=== PATIENT | female | born 1970 | race Caucasian/White ===

== ENCOUNTER 2016-11-20 18:38 | Inpatient (IN) | payer MEDICAID ==
[~2016-11-20] VITALS: Ht 162.6 cm; Wt 69.0 kg
--- NOTE | 2016-11-20 21:00 | ERD ---
ER Documentation Chief Complaint Date/Time DATE: 11/20/16 TIME: 20:58 Chief Complaint VAG BLEED FOR THE PAST MONTH. WITH MILD DYSURIA MILD DIZZINESS HPI This a 46-year-old female who presents the emergency department today complaining of vaginal bleeding for the past month. Patient states she also has some lower abdominal pain. Patient states that she saw her doctor 3 weeks ago was given oral contraceptive pills with no improvement. Patient states that she has been getting her period approximately 2 times a month however this past time it has continued bleeding. States she has a Nexplanon implant. Denies any nausea vomiting, dysuria. ROS All systems reviewed and are negative except as per history of present illness. Physical Exam Vitals Vital Signs Date Time Temp Pulse Resp B/P Pulse Ox O2 Delivery O2 Flow Rate FiO2 11/20/16 19:00 98.8 86 20 161/88 100 Physical Exam Const: No acute distress Head: Atraumatic Eyes: Normal Conjunctiva ENT: Normal External Ears, Nose and Mouth. Neck: Full range of motion..~ No meningismus. Resp: Clear to auscultation bilaterally Cardio: Regular rate and rhythm, no murmurs Abd: Soft, lower pelvic pain, non distended. Normal bowel sounds. No right lower quadrant pain. No tenderness to McBurney's. No left lower quadrant pain. Skin: No petechiae or rashes Back: No midline or flank tenderness Ext: No cyanosis, or edema Neur: Awake and alert Psych: Normal Mood and Affect Result Diagram: 11/20/16 2100 11/20/16 2100 Results 24 hrs Laboratory Tests Test 11/20/16 21:00 11/20/16 21:26 Alanine Aminotransferase (ALT/SGPT) 19IU/L Albumin 4.1g/dl Albumin/Globulin Ratio 1.10 Alkaline Phosphatase 53IU/L Anion Gap 19 Aspartate Amino Transf (AST/SGOT) 19IU/L Basophils # 0.010^3/ul Basophils % 0.5% Blood Urea Nitrogen 7mg/dl Calcium Level 8.9mg/dl Carbon Dioxide Level 25mmol/L Chloride Level 104mmol/L Creatinine 0.57mg/dl Direct Bilirubin 0.00mg/dl Eosinophils # 0.110^3/ul Eosinophils % 2.1% Globulin 3.70g/dl Glucose Level 101mg/dl Hematocrit 25.8% Hemoglobin 7.8g/dl Indirect Bilirubin 0.1mg/dl Lymphocytes # 2.810^3/ul Lymphocytes % 45.7% Mean Corpuscular Hemoglobin 24.9pg Mean Corpuscular Hemoglobin Concent 30.2g/dl Mean Corpuscular Volume 82.4fl Mean Platelet Volume 8.5fl Monocytes # 0.410^3/ul Monocytes % 7.2% Neutrophils # 2.710^3/ul Neutrophils % 44.2% Nucleated Red Blood Cells # 0.010^3/ul Nucleated Red Blood Cells % 0.0/100WBC Platelet Count 62838^3/UL Potassium Level 3.5mmol/L Red Blood Count 3.1310^6/ul Red Cell Distribution Width 15.1% Sodium Level 144mmol/L Total Bilirubin 0.1mg/dl Total Protein 7.8g/dl White Blood Count 6.210^3/ul Bedside Urine Blood 3+ Bedside Urine Glucose (UA) Negative Bedside Urine Ketones (LAB) Negative Bedside Urine Leukocyte Esterase (L Trace Bedside Urine Nitrite (LAB) Negative Bedside Urine Protein (LAB) 1+ Bedside Urine pH (LAB) 6.0 Current Medications Medications (Trade) Dose Ordered Sig/José Route PRN Reason Start Time Stop Time Status Last Admin Dose Admin Sodium Chloride (NS) 250 ml @ 0 mls/hr Q0M ONCE IV 11/20/16 21:49 11/20/16 21:50 DC Procedures/MDM This 46-year-old female who presents to the emergency department today complaining of vaginal bleeding for the past month. Patient is already on the Nexplanon and has tried pohm-jin-sfrbyad medications and still continue to bleed. I did obtain laboratory work as well as an ultrasound Laboratory work shows no elevated white blood cell count. Her hemoglobin is 7.8 hematocrit is 25%. Her platelets are elevated. Electrolytes are within normal limits. Glucose is within normal limits. Liver function is within normal limits. UA shows trace leukocyte esterase and negative nitrites. Urine test is negative Non-OB ultrasound is pending at time of signout to Dr. Scott. Patient symptoms at this time is consistent with excessive vaginal bleeding versus dysfunctional uterine bleeding. I discussed the patient's hemoglobin levels with Dr. Scott he feels that the patient would require a transfusion at this time given that her hemoglobin is less than 8. She will require admission for further evaluation and workup. I have explained to this to the patient. Patient understands. Patient declined pain medication here in the emergency department. Any further documentation orders placed will be placed by Dr. Scott or the admitting physician Departure Diagnosis: Primary Impression: Excessive vaginal bleeding Condition: REBECCA Chacko PA-C Nov 20, 2016 21:00
[2016-11-20 21:14] LABS: ADD SCAN DIFF NO
[2016-11-20 21:19] LABS: BASOPHILS % 0.5 % (0.0-2.0); EOSINOPHILS # 0.1 10^3/ul (0.0-0.5); EOSINOPHILS % 2.1 % (0.0-7.0); HEMATOCRIT 25.8 % (37.0-47.0); HEMOGLOBIN 7.8 g/dl (12.0-16.0); LYMPHOCYTES # 2.8 10^3/ul (0.8-2.9); LYMPHOCYTES % 45.7 % (15.0-51.0); MEAN CORPUSCULAR HEMOGLOBIN 24.9 pg (29.0-33.0); MEAN CORPUSCULAR HGB CONC 30.2 g/dl (32.0-37.0); MEAN CORPUSCULAR VOLUME 82.4 fl (82.0-101.0); MEAN PLATELET VOLUME 8.5 fl (7.4-10.4); MONOCYTE # 0.4 10^3/ul (0.3-0.9); MONOCYTES % 7.2 % (0.0-11.0); NEUTROPHIL # 2.7 10^3/ul (1.6-7.5); NEUTROPHILS % 44.2 % (39.0-77.0); PLATELET COUNT 513 10^3/UL (140-415); RED BLOOD COUNT 3.13 10^6/ul (4.20-5.40); RED CELL DISTRIBUTION WIDTH 15.1 % (11.5-14.5); WHITE BLOOD COUNT 6.2 10^3/ul (4.8-10.8)
[2016-11-20 21:23] LABS: URINE BLOOD (Dip) POC 3+ (NEGATIVE)
[2016-11-20 21:28] LABS: ALBUMIN 4.1 g/dl (3.3-4.9); POTASSIUM 3.5 mmol/L (3.5-5.1)
[2016-11-20 21:30] LABS: CREATININE 0.57 mg/dl (0.44-1.00)
[2016-11-20 21:31] LABS: ALBUMIN/GLOBULIN RATIO 1.1; BILIRUBIN,INDIRECT 0.1 mg/dl (0-1.1); BILIRUBIN,TOTAL 0.1 mg/dl (0.2-1.3); TOTAL PROTEIN 7.8 g/dl (6.1-8.1)
[2016-11-20 21:32] LABS: CALCIUM 8.9 mg/dl (8.4-10.2)
[2016-11-20] MEDS ORDERED: SOD CHLORIDE 0.9% 250 ML IV ONE (21:49)
--- NOTE | 2016-11-20 22:00 | RADRPT ---
PROCEDURE: US Pelvis. CLINICAL INDICATION: Vaginal bleeding TECHNIQUE: Multiple sonographic images of the pelvis were obtained utilizing a transabdominal and endovaginal technique. The images were reviewed on a PACS workstation. COMPARISON: None. FINDINGS: The uterus is visualized and measures 9.1 x 5.4 x 6.5 cm in size. The endometrial echo complex is h eterogeneous and measures 10.9 mm. There is no evidence for free fluid. A right ovarian cystic struc ture is seen measuring 1.4 cm in maximal diameter and may represent a dominant follicle. The remain isamar of the right ovary has a normal echotexture and measures 2.6 x 1.6 x 2.1 cm. The left ovary is not well visualized. No adnexal masses are noted. IMPRESSION: 1. Thickened and heterogeneous endometrium. 2. Small right ovarian cystic structure which may represent a dominant follicle. RPTAT: HPNM Physician Oscar Date Time Electronically viewed and signed by Physician Oscar on 11/20/2016 22:00 /
[2016-11-20] MEDS ORDERED: ACETAMINOPHEN 325 MG TAB PO PRN (22:30)
[2016-11-20] MEDS ORDERED: ONDANSETRON 4 MG INJ IV PRN (22:30)
[2016-11-21] VITALS (9 sets, daily range): BP systolic 120–149; BP diastolic 60–82; PULSE 71–83; RESP 14–18; TEMP 98.3; Ht 162.6 cm; Wt 69.0 kg
[2016-11-21] MEDS ORDERED: ONDANSETRON 4 MG INJ IV PRN (03:30)
[2016-11-21] MEDS ORDERED: ACETAMINOPHEN 325 MG TAB PO PRN (03:30)
[2016-11-21 07:33] LABS: ADD SCAN DIFF NO
[2016-11-21 07:38] LABS: BASOPHILS % 0.6 % (0.0-2.0); EOSINOPHILS # 0.1 10^3/ul (0.0-0.5); EOSINOPHILS % 2.1 % (0.0-7.0); HEMATOCRIT 31.7 % (37.0-47.0); HEMOGLOBIN 9.9 g/dl (12.0-16.0); LYMPHOCYTES # 1.7 10^3/ul (0.8-2.9); LYMPHOCYTES % 34.3 % (15.0-51.0); MEAN CORPUSCULAR HEMOGLOBIN 25.8 pg (29.0-33.0); MEAN CORPUSCULAR HGB CONC 31.2 g/dl (32.0-37.0); MEAN CORPUSCULAR VOLUME 82.8 fl (82.0-101.0); MEAN PLATELET VOLUME 8.8 fl (7.4-10.4); MONOCYTE # 0.4 10^3/ul (0.3-0.9); NEUTROPHIL # 2.7 10^3/ul (1.6-7.5); NEUTROPHILS % 54.8 % (39.0-77.0); PLATELET COUNT 444 10^3/UL (140-415); RED BLOOD COUNT 3.83 10^6/ul (4.20-5.40); RED CELL DISTRIBUTION WIDTH 14.9 % (11.5-14.5); WHITE BLOOD COUNT 4.9 10^3/ul (4.8-10.8)
[2016-11-21 07:49] LABS: ALBUMIN 3.7 g/dl (3.3-4.9)
[2016-11-21 07:50] LABS: POTASSIUM 3.6 mmol/L (3.5-5.1)
[2016-11-21 07:52] LABS: ALBUMIN/GLOBULIN RATIO 1.08; BILIRUBIN,INDIRECT 0.6 mg/dl (0-1.1); BILIRUBIN,TOTAL 0.6 mg/dl (0.2-1.3); CREATININE 0.55 mg/dl (0.44-1.00); TOTAL PROTEIN 7.1 g/dl (6.1-8.1)
[2016-11-21 07:53] LABS: CALCIUM 8.4 mg/dl (8.4-10.2); MAGNESIUM 2.1 mg/dl (1.7-2.5)
--- NOTE | 2016-11-21 10:59 | HP ---
Date/Time of Note Date/Time of Note DATE: 11/21/16 TIME: 10:51 Assessment/Plan Lines/Catheters IV Catheter Type (from Nrsg): Peripheral IV Assessment/Plan Assessment/Plan 1. Menorrhagia - Pelvic u/s showed thickened and heterogeneous endometrium and small right ovarian cystic structure which may represent a dominant follicle. - She is s/p 2 units of PRBCs for anemia - Need LANDING SIGNAL OFFICER consult 2. Symptomatic Anemia - see above HPI/ROS Admit Date/Time Admit Date/Time Nov 20, 2016 at 22:30 Hx of Present Illness This is a 46 yo female who presented to [facility] complaining of heavy menses of over 2 months duration. She was given oral contreceptive by PCP with no improvement. Denied vaginal bleeding in between her periods. She also complained of lower abd pain. denied fever, chills, nausea, vomiting, chest pain , SOB or urinary symptoms. In ER, she was found to be anemic with hgb of 7.8. Pelvic u/s showed thickened and heterogeneous endometrium and small right ovarian cystic structure which may represent a dominant follicle. she has reived 2 units of PRBCs. . PMH/Family/Social Social History Smoking Status: Never smoker Exam/Review of Systems Vital Signs Vitals Vital Signs Date Time Temp Pulse Resp B/P Pulse Ox O2 Delivery O2 Flow Rate FiO2 11/21/16 08:22 98.0 72 18 131/64 96 11/21/16 06:40 Room Air Intake and Output 11/20/16 11/20/16 11/21/16 15:00 23:00 07:00 Intake Total 1150 ml Output Total 500 ml Balance 650 ml Labs Result Diagram: 11/21/16 0638 11/21/16 0638 Medications Medications Current Medications Acetaminophen (Tylenol Tab) 650 mg Q4H PRN PO PAIN AND OR ELEVATED TEMP; Start 11/21/16 at 03:30 Ondansetron HCl (Zofran Inj) 4 mg Q6H PRN IV NAUSEA AND/OR VOMITING; Start 11/21 at 03:30 HILARIA GARIBAY MD Nov 21, 2016 10:59
--- NOTE | 2016-11-21 16:26 | PDOCDIS ---
Discharge Instructions CONDITION Patient Condition: Good HOME CARE INSTRUCTIONS: Diet Instructions: Regular ACTIVITY: Activity Restrictions: No Restrictions FOLLOW UP/APPOINTMENTS Appointments F/U WITH A PCP AND A COMPLIANCE INVESTIGATOR IN 1-2 WEEKS XIMENA ROBLES Nov 21, 2016 16:26
--- NOTE | 2016-11-21 17:31 | CONS ---
Date/Time of Note Date/Time of Note DATE: 11/21/16 TIME: 17:21 Consultation Date/Type/Reason Admit Date/Time Nov 21, 2016 Hospital consult Final diagnosis; menometrorrhagia, secondary anemia Initial Consult Date This patient is a 47 years old 3 para 3 who came to emergency room due to menorrhagia and metrorrhagia and secondary anemia . Her hemoglobin and hematocrit in the emergency room were 7.8 and 25.6 respectively. She was given 2 units of blood. In reviewing her past medical history ; she was having this heavy for few months. Her 3 deliveries were all normal. No history of allergy to any medication. She has a hormone (etonogestrel 68mg) containing contraceptive implant mg for 3 year which is scheduled to be removed on April 16 of this year. On examination she is a slightly anemic with pale mucosa. Ear nose throat otherwise normal Neck is normal, no neck vein distention ,no thyromegaly, no lymph node enlargement anywhere in the body Chest is clear to auscultation her precaution no rales. Heart normal sinus rhythm no murmur heart rate is around 88/min Breasts are free of masses Abdomen is soft no organomegaly no real tenderness No CVA tenderness Extremities are normal no varicosities On pelvic examination she does have some bleeding , vagina and cervix are otherwise normal . The uterus is top normal size ,no adnexal mass could be appreciated . Impression : anemia due to menometrorrhagia Patient was advised to see her technical lead for possible D&C and hormone therapy if no effect fact she might need a hysterectomy Reason for Consultation Before discharge a prescription was given for medroxyprogesterone acetate 10 mg tablets to be taken once a day as well as ibuprofen 600 mg tablet every 6 hours if needed . Before discharge her hemoglobin was 9.9 hematocrit 31.7 Detailed Summary Eyes: no complaints (Conjunctiva is somewhat pale), No discharge, No other, No pain, No redness, No visual change ENT: No bleeding, No congestion, No discharge, No dysphagia, No no complaints, No other, No pain, No sore throat Respiratory: No cough, No no complaints, No other, No pain, No pleuritic pain, No shortness of breath, No sputum, No wheezing Cardiovascular: No chest pain, No edema, No lightheadedness, No no complaints, No orthopenea, No other, No palpitations, No paroxysmal nocturnal dyspnea Gastrointestinal: No blood, No constipation, No decreased appetite, No diarrhea , No flatus, No nausea, No no complaints, No other, No pain, No passing stool, No vomiting Genitourinary: bleeding (Slight vaginal bleeding at this time), No discharge, No dysuria, No flank pain, No hematuria, No no complaints, No other Musculoskeletal: No back pain, No bone/joint pain, No neck pain, No no complaints, No other, No restricted range of motion, No swelling Skin: No bruising, No erythema, No laceration, No no complaints, No other, No pruritis, No rash, No skin lesions Neurologic: other (Normal deep tendon reflex), No confusion, No dizziness, No focal-weakness, No headache, No no complaints , No seizure, No syncope Exam/Review of Systems Vital Signs Vitals Vital Signs Date Time Temp Pulse Resp B/P Pulse Ox O2 Delivery O2 Flow Rate FiO2 11/21/16 08:22 98.0 72 18 131/64 96 11/21/16 06:40 Room Air Intake and Output 11/20/16 11/20/16 11/21/16 15:00 23:00 07:00 Intake Total 1150 ml Output Total 500 ml Balance 650 ml Results Result Diagram: 11/21/1638 11/21/16 0638 Results 24 hrs Laboratory Tests Test 11/20/16 21:00 11/20/16 21:26 11/21/16 06:38 Alanine Aminotransferase (ALT/SGPT) 19 16 Albumin 4.1 3.7 Albumin/Globulin Ratio 1.10 1.08 Alkaline Phosphatase 53 51 Anion Gap 19 H 16 Aspartate Amino Transf (AST/SGOT) 19 19 Basophils # 0.0 0.0 Basophils % 0.5 0.6 Blood Urea Nitrogen 7 5 L Calcium Level 8.9 8.4 Carbon Dioxide Level 25 25 Chloride Level 104 108 Creatinine 0.57 0.55 Direct Bilirubin 0.00 0.00 Eosinophils # 0.1 0.1 Eosinophils % 2.1 2.1 Globulin 3.70 H 3.40 H Glucose Level 101 86 Hematocrit 25.8 L 31.7 #L Hemoglobin 7.8 L 9.9 #L Indirect Bilirubin 0.1 0.6 Lymphocytes # 2.8 1.7 Lymphocytes % 45.7 34.3 Mean Corpuscular Hemoglobin 24.9 L 25.8 L Mean Corpuscular Hemoglobin Concent 30.2 L 31.2 L Mean Corpuscular Volume 82.4 82.8 Mean Platelet Volume 8.5 8.8 Monocytes # 0.4 0.4 Monocytes % 7.2 8.0 Neutrophils # 2.7 2.7 Neutrophils % 44.2 54.8 Nucleated Red Blood Cells # 0.0 0.0 Nucleated Red Blood Cells % 0.0 0.0 Platelet Count 513 H 444 H Potassium Level 3.5 3.6 Red Blood Count 3.13 L 3.83 #L Red Cell Distribution Width 15.1 H 14.9 H Sodium Level 144 145 H Total Bilirubin 0.1 L 0.6 Total Protein 7.8 7.1 White Blood Count 6.2 4.9 # Bedside Urine Blood 3+ H Bedside Urine Glucose (UA) Negative Bedside Urine Ketones (LAB) Negative Bedside Urine Leukocyte Esterase (L Trace H Bedside Urine Nitrite (LAB) Negative Bedside Urine Protein (LAB) 1+ H Bedside Urine pH (LAB) 6.0 Magnesium Level 2.1 Phosphorus Level 3.0 Medications Medications Current Medications Acetaminophen (Tylenol Tab) 650 mg Q4H PRN PO PAIN AND OR ELEVATED TEMP Last administered on 11/21/16 12:41; Admin Dose 650 MG; Start 11/21/16 at 03:30 Ondansetron HCl (Zofran Inj) 4 mg Q6H PRN IV NAUSEA AND/OR VOMITING; Start 11/21 at 03:30 BETH SANON MD Nov 21, 2016 17:31
--- NOTE | 2016-11-21 18:34 | DS ---
DATE OF ADMISSION: 11/20/2016 DATE OF DISCHARGE: 11/21/2016 DISCHARGE DIAGNOSES 1. Severe anemia, status post blood transfusion as well as OB consult. The patient discharged with control pills. 2. Symptomatic anemia. Once again, patient was transfused 2 units of packed red blood cells, now s table. HOSPITAL COURSE: The patient is a 46-year-old female with history of chronic back pain. The patien t presents with menorrhagia for 2 months. She was given OCP by PCP with no improvement. She denies any vaginal bleeding between her periods. The patient presented to the ER where she was found to h ave a hemoglobin of 7.8. Pelvic ultrasound showed a thickened heterogeneous endometrium with a smal l right ovarian cyst structure which may represent a dominant follicle. She did receive 2 units of packed red blood cells and her hemoglobin did improve to 9.9. She was seen by a frontload driver who re commended another kind of OCP, and patient was given NSAIDs for the back pain. On the day of discha rge, the patient's vitals, labs, physical exam were stable. She had no acute complaints. She wanted to go home. Questions answered. CONDITION ON DISCHARGE: Stable. DISPOSITION: To home. MEDICATIONS. NSAIDs and OCP given by the frontload driver. The patient has no other reported home medi cations. FOLLOWUP: The patient is to follow up a PCP and frontload driver in 1 to 2 weeks. Greater than 30 minutes was spent coordinating discharge of the patient. Dictated By: XIMENA ROBLES MD BS/NTS Conf#: [id number] DID#: [id number]
== END 2016-11-21 17:25 | disposition home or self-care (01) | DRG 812 ==
LOC: FTE 18:38 → MS1 22:30
PROVIDERS: ADMIT Internal Medicine; ATTEND Internal Medicine
PROC: 30233N1 Transfusion of Nonautologous Red Blood Cells into Peripheral Vein, Percutaneous Approach (ICD-10-PCS; principal; 2016-11-21)
DX: D64.9 Anemia, unspecified (principal); N92.0 Excessive and frequent menstruation with regular cycle; N93.8 Other specified abnormal uterine and vaginal bleeding
CPT/HCPCS: 36430; 76830; 76856; 80053; 81003; 83735; 84100; 85025; 86644; 86850; 86900; 86901; 86920; J7040; P9016

== ENCOUNTER 2017-10-31 08:24 | Emergency (ER) | END 2017-10-31 12:49 | disposition home or self-care (01) ==

== ENCOUNTER 2019-01-11 09:35 | Emergency (ER) | payer MEDICAID ==
[~2019-01-11] VITALS: Wt 79.0 kg
[~2019-01-11 09:35] MED LIST: CIPR500T4 PO; IBUP800T48 PO; PHEN-716 PO
[2019-01-11 09:39] VITALS: BP 165/83; PULSE 74; RESP 18
[2019-01-11] MEDS ORDERED: KETOROLAC 60 MG INJ IM STA (10:06)
[2019-01-11] MEDS ORDERED: LIDOCAINE 1% (MPF) 5 ML VIAL INJ ONE (13:30)
[2019-01-11] MEDS ORDERED: CEFTRIAXONE 1 GM INJ IM ONE (13:30)
[2019-01-11] MEDS ORDERED: CEPH-443 PO (13:45)
[2019-01-11] MEDS ORDERED: NAPR-985 PO (13:45)
--- NOTE | 2019-01-11 14:23 | ERD ---
ER Documentation Chief Complaint Chief Complaint DYSURIA HPI 48-year-old female patient with no significant past medical history presents to ED complaining of dysuria that started 3 days ago. Patient also reports that she has some lower back pain that started a few years ago. Describes her pain is achy and rates it a 4 out of 10. Describes her dysuria as a burning sensation. Denies any saddle anesthesia, urine or bowel incontinence. Denies any heavy lifting. Denies any trauma. Denies any abdominal pain, chest pain, shortness of breath.Denies any fever, chills, nausea, vomiting, diarrhea, neck stiffness. ROS All systems reviewed and are negative except as per history of present illness. Medications Home Meds Active Scripts Naproxen* (Naprosyn*) 500 Mg Tablet, 500 MG PO BID PRN for PAIN AND/OR INFLAMMATION, #30 TAB Prov:SHASHA MO PA-C 01/11/19 Cephalexin* (Keflex*) 500 Mg Capsule, 500 MG PO QID for 7 Days, CAP Prov:SHASHA MO PA-C 01/11/19 Phenazopyridine Hcl* (Phenazopyridine Hcl*) 100 Mg Tablet, 100 MG PO TID for 3 Days, TAB Prov:PAMELA RICKETTS DO 10/31/17 Ibuprofen* (Motrin*) 800 Mg Tab, 800 MG PO Q6H PRN for PAIN AND OR ELEVATED TEMP, #30 TAB Prov:PAMELA RICKETTS DO 10/31/17 Ciprofloxacin Hcl* (Ciprofloxacin Hcl*) 500 Mg Tablet, 500 MG PO BID for 10 Days, TAB Prov:PAMELA RICKETTS DO 10/31/17 Allergies Allergies: Coded Allergies: No Known Allergy (Unverified , 10/31/17) PMhx/Soc Medical and Surgical Hx: pt denies Medical Hx, pt denies Surgical Hx History of Surgery: No Anesthesia Reaction: No Hx Neurological Disorder: No Hx Respiratory Disorders: No Hx Cardiac Disorders: No Hx Psychiatric Problems: No Hx Miscellaneous Medical Probl: No (denies medical history) Hx Alcohol Use: No Hx Substance Use: No Hx Tobacco Use: No Smoking Status: Never smoker FmHx Family History: No diabetes, No coronary disease Physical Exam Vitals Vital Signs Date Temp Pulse Resp B/P (MAP) Pulse Ox O2 O2 Flow FiO2 Time Delivery Rate 01/11/19 98.1 74 18 165/83 99 09:39 (110) Physical Exam Const: Gfa-gtn-sewsohqbr, well-nourished. In no acute distress. Head: Atraumatic, normocephalic Eyes: Normal Conjunctiva without injection. No purulent discharge. ENT: Normal external ear, nose. Moist oropharynx without tonsillar exudates. Non-erythematous pharynx. Uvula midline. No drooling. No trismus. Neck: No cervical midline tenderness. Full range of motion. No meningismus. No cervical lymphadenopathy. No JVD. Resp: Clear to auscultation bilaterally. No wheezing, rhonchi, rales, or crackles. No accessory muscle use. No retractions. Cardio: Regular rate and rhythm. No murmurs, rubs or gallops. Abd: Soft, nontender, non distended. Normal bowel sounds. No palpable masses. No rebound tenderness. No guarding. Negative McBurney's point. Negative psoas sign. Negative obturator sign. : See exam in MDM. Skin: No petechiae or rashes Back: Lumbar midline tenderness. No CVA tenderness. Ext: No cyanosis, or edema. Neur: Awake and alert. Normal gait. Normal coordination. Psych: Normal Mood and Affect Results 24 hrs Laboratory Tests Test 01/11/19 10:16 01/11/19 10:18 POC Beta HCG, Qualitative NEGATIVE Urine Color STRAW Urine Clarity SLIGHTLY CLOUDY Urine pH 8.0 Urine Specific Mongo 1.003 Urine Ketones NEGATIVE mg/dL Urine Nitrite NEGATIVE mg/dL Urine Bilirubin NEGATIVE mg/dL Urine Urobilinogen NEGATIVE mg/dL Urine Leukocyte Esterase 3+ Iraj/ul Urine Microscopic RBC 1 /HPF Urine Microscopic WBC 21 /HPF Urine Squamous Epithelial Cells FEW /HPF Urine Bacteria FEW /HPF Urine Hemoglobin 2+ mg/dL Urine Glucose NEGATIVE mg/dL Urine Total Protein NEGATIVE mg/dl Current Medications Medications Dose Sig/José Start Time Status Last (Trade) Ordered Route PRN Stop Time Admin Dose Reason Admin Ketorolac 60 mg ONCE STAT 01/11/19 DC 01/11/19 Tromethamine IM 10:06 10:25 (Toradol) 01/11/19 10:10 Ceftriaxone 1 gm ONCE ONCE 01/11/19 DC 01/11/19 Sodium IM 13:30 13:38 (Rocephin) 01/11/19 13:31 Lidocaine 5 ml ONCE ONCE 01/11/19 DC 01/11/19 (Xylocaine INJ 13:30 13:38 1% (Mpf)) 01/11/19 13:31 Procedures/MDM 48-year-old female patient with no significant past medical history presents to ED complaining of dysuria and back pain. Patient is afebrile and nontoxic- appearing. Patient's blood pressure is 165/83. Blood Pressure Assessment: Patient's blood pressure was elevated (>120/80) but appears stable without evidence of hypertension emergency or urgency. The patient was counseled about the risks of hypertension and urged to pursue outpatient monitoring and therapy within a week with their primary care physician. Patient was further evaluated with a UA, urine , lumbar x-ray since she has lumbar tenderness. . Urine: 3+ leukocyte esterase, no nitrites, 2+ hematuria. Urine : Negative IMPRESSION: 1. 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 If surgical intervention is considered, consider correlation with plain film radiographs of the thoracic spine for numbering system confirmation. 2. No acute fracture or dislocation. Patient has a urinary tract infection is on leukocyte esterase and hematuria noted on her analysis. Low suspicion for septic renal stone, ectopic , ovarian torsion, gastritis, GERD, peptic ulcer disease, cholecystitis, choledocholithiasis, cholangitis, pancreatitis, appendicitis, bowel obstruction, ileus, volvulus, nephrolithiasis, pyelonephritis, hepatitis, perforated viscus, diverticulitis, strangulated/incarcerated hernia, DKA, acute abdomen, mesenteric ischemia or other emergent conditions. Patient was instructed to follow-up with orthopedic physician further evaluation for the x-ray finding of the partial lumbarization of S1. Patient is ambulating here in the ED without difficulty. Denies saddle anesthesia, numbness or tingling, urine or bowel incontinence, weakness. Low suspicion for cauda equina syndrome, cord compression, nephrolithiasis, aortic aneurysm, aortic dissection, epidural abscess, spinal hematoma, malignancy, pyelonephritis, or other emergent conditions. Diagnosis: Back Pain, Dysuria Discharge medications: Naproxen, Keflex Follow up with primary care physician in 1-2 days. Instructed patient to return to the ED sooner for any worsening symptoms. Patient's questions were answered. Patient is hemodynamically stable. Patient understood and agreed with discharge plan. Patient discharged stable. Disclaimer: Inadvertent spelling and grammatical errors are likely due to EHR/dictation software use and do not reflect on the overall quality of patient care. Also, please note that the electronic time recorded on this note does not necessarily reflect the actual time of the patient encounter. Departure Diagnosis: Primary Impression: Back pain Back pain location: back pain in unspecified location Chronicity: unspecified Back pain laterality: unspecified Qualified Codes: M54.9 - Dorsalgia, unspecified Additional Impression: Dysuria Condition: Stable Patient Instructions: Urinary Tract Infections in Women, Back Pain (Acute Or Chronic) Referrals: [facility] YOU HAVE RECEIVED A MEDICAL SCREENING EXAM AND THE RESULTS INDICATE THAT YOU DO NOT HAVE A CONDITION THAT REQUIRES URGENT TREATMENT IN THE EMERGENCY DEPARTMENT. FURTHER EVALUATION AND TREATMENT OF YOUR CONDITION CAN WAIT UNTIL YOU ARE SEEN IN YOUR DOCTORS OFFICE WITHIN THE NEXT 1-2 DAYS. IT IS YOUR RESPONSIBILITY TO MAKE AN APPOINTMENT FOR FOLOW-UP CARE. IF YOU HAVE A PRIMARY DOCTOR --you should call your primary doctor and schedule an appointment IF YOU DO NOT HAVE A PRIMARY DOCTOR YOU CAN CALL OUR PHYSICIAN REFERRAL HOTLINE AT IF YOU CAN NOT AFFORD TO SEE A PHYSICIAN YOU CAN CHOSE FROM THE FOLLOWING [facility] [address] [facility]. [facility] [address] [facility]. [facility] [address] [facility] [facility] [address] [facility]. [facility] [address] [facility]. [facility]. [address] [facility]. [facility] YOU HAVE RECEIVED A MEDICAL SCREENING EXAM AND THE RESULTS INDICATE THAT YOU DO NOT HAVE A CONDITION THAT REQUIRES URGENT TREATMENT IN THE EMERGENCY DEPARTMENT. FURTHER EVALUATION AND TREATMENT OF YOUR CONDITION CAN WAIT UNTIL YOU ARE SEEN IN YOUR DOCTORS OFFICE WITHIN THE NEXT 1-2 DAYS. IT IS YOUR RESPONSIBILITY TO MAKE AN APPOINTMENT FOR FOLOW-UP CARE. IF YOU HAVE A PRIMARY DOCTOR --you should call your primary doctor and schedule and appointment IF YOU DO NOT HAVE A PRIMARY DOCTOR YOU CAN CALL OUR PHYSICIAN REFERRAL HOTLINE AT . IF YOU CAN NOT AFFORD TO SEE A PHYSICIAN YOU CAN CHOSE FROM THE FOLLOWING [facility] INSTITUTIONS: [facility] [address] [place] [address] [facility] [address] [place] [address] [facility] [address] [place] [address] [facility] Additional Instructions: Llame al doctor MAANA y shun irina ALANA PARA DENTRO DE 2-3 FAIRCHILD.Dgale a la secretaria que nosotros le instruimos hacer esta alana.Avise o llame si cobos condicin se empeora antes de la alana. Regresa aqui si peor o no mejor. SHASHA MO PA-C Jan 11, 2019 14:23
== END 2019-01-11 14:00 | disposition home or self-care (01) ==
LOC: FTE 09:35
DX: M54.9 Dorsalgia, unspecified (principal)
CPT/HCPCS: 72100; 81001; 81025; 96372; J0696; J1885; Z7502